=== PATIENT | male | born 2000 | race African-American/Black ===

== ENCOUNTER 2024-01-26 15:41 | Emergency (ER) | payer MEDICAID ==
[~2024-01-26] VITALS: Ht 175.3 cm; Wt 78.0 kg
[2024-01-26 15:45] VITALS: O2SAT 97
[2024-01-26 15:57] VITALS: BP 119/65; PULSE 68; RESP 16; TEMP 98.9; O2SAT 100
[2024-01-26 16:52] LABS: BASOPHILS % 0.7 % (0.0-2.0); DIFFERENTIAL COMMENT 0; EOSINOPHILS % 3.9 % (0.0-5.0); HEMATOCRIT. 35.4 % (42.0-52.0); HEMOGLOBIN. 11.4 g/dL (14.0-18.0); LYMPHOCYTES % 41.3 % (20.0-50.0); MEAN CORPUSCULAR HEMOGLOBIN 25.5 pg (28.0-32.0); MEAN CORPUSCULAR HGB CONC 32.2 g/dL (31.0-37.0); MEAN CORPUSCULAR VOLUME 79.2 fL (80.0-94.0); MEAN PLATELET VOLUME 8.8 fl (7.4-10.4); MONOCYTES % 7.4 % (2.0-8.0); NEUTROPHILS % 46.7 % (40.0-76.0); PLATELET 349 x1000/uL (130-400); RED BLOOD CELL COUNT 4.47 mill/uL (4.7-6.1); RED CELL DISTRIBUTION WIDTH 14.8 % (11.6-14.6); WHITE BLOOD COUNT 6.8 x1000/uL (4.5-11.0)
[2024-01-26 17:05] LABS: CHLORIDE 106 mEq/L (98-107); POTASSIUM 3.8 mEq/L (3.5-5.1); SODIUM 139 mEq/L (136-145)
[2024-01-26 17:06] LABS: CALCIUM 9.7 mg/dL (8.7-10.4); CARBON DIOXIDE 28 mEq/L (21-32)
[2024-01-26 17:11] LABS: GLUCOSE 80 mg/dL (70-105); UREA NITROGEN BLOOD 10 mg/dL (9-23)
[2024-01-26 17:22] LABS: TROPONIN I HIGH SENSITIVITY < 4 ng/L (3.0-53)
[2024-01-26] MEDS ORDERED: TOPUD MT (18:56)
[2024-01-26] MEDS ORDERED: IBUP-1523 MT (18:56)
[2024-01-26] MEDS ORDERED: ONDA4TAB50 MT (18:56)
[2024-01-26] MEDS: KETOROLAC 30MG/ML VIAL IV ONE (19:04)
[2024-01-26] MEDS: SODIUM CHLORIDE 0.9% 1,000 ML IV ONE (19:04)
[2024-01-26] MEDS: ONDANSETRON HCL 4MG/2ML INJ IV ONE (19:05)
== END 2024-01-26 19:05 | disposition home or self-care (01) ==
LOC: ER 15:41
DX: S06.0XAA Concussion with loss of consciousness status unknown, initial encounter (principal); D64.9 Anemia, unspecified; W22.8XXA Striking against or struck by other objects, initial encounter; X58.XXXA Exposure to other specified factors, initial encounter; Y93.89 Activity, other specified; Y92.89 Other specified places as the place of occurrence of the external cause; Y99.8 Other external cause status
CPT/HCPCS: 80048; 85025; 84484; 36415; 70450; 70486; 93005; 99284; J7030; Z7610 ×2